=== PATIENT | male | born 1970 | race Caucasian/White ===

== ENCOUNTER 2021-02-24 07:46 | Emergency (ER) | payer SELFPAY ==
[~2021-02-24] VITALS: Ht 172.7 cm; Wt 91.0 kg
[2021-02-24 07:48] VITALS: BP 161/93
[2021-02-24] MEDS ORDERED: FLUORESCEIN SODIUM 1MG/STRIP BOTHEYE ONE (09:45)
[2021-02-24] MEDS ORDERED: TETRACAINE 0.5% OPHTH DROPS 4ML BOTHEYE ONE (09:45)
[2021-02-24] MEDS ORDERED: ACET-2708 MT (10:45)
[2021-02-24] MEDS ORDERED: ERYT1OIN6 EACHEYE (10:45)
== END 2021-02-24 12:36 | disposition home or self-care (01) ==
LOC: ER 07:46
DX: S05.02XA Injury of conjunctiva and corneal abrasion without foreign body, left eye, initial encounter (principal); Z20.822 Contact with and (suspected) exposure to COVID-19; I10 Essential (primary) hypertension; X58.XXXA Exposure to other specified factors, initial encounter; Y93.89 Activity, other specified; Y92.89 Other specified places as the place of occurrence of the external cause
CPT/HCPCS: 87426; 99283